=== PATIENT | female | born 1975 | race Caucasian/White ===

== ENCOUNTER 2016-09-01 13:50 | Outpatient (CLI) | payer MEDICAID ==
--- NOTE | 2016-09-02 16:53 | Mammography Report ---
DIGITAL SCREENING MAMMOGRAM: 09/01/2016 CLINICAL INDICATION: A 41-year-old with history of late childbearing, for baseline. TECHNIQUE: Routine CC and MLO projections were obtained of the breasts. Bilateral laterally exaggera gia craniocaudal views. FINDINGS: The breasts demonstrate heterogeneously dense fibroglandular parenchyma bilaterally. Coars e and punctate, typically benign calcifications are present. No suspicious masses, clustered microcal cifications, or regions of architectural distortion are identified. IMPRESSION: BENIGN FINDINGS. RECOMMENDATION: ROUTINE ANNUAL SCREENING UNLESS OTHERWISE CLINICALLY INDICATED. BIRADS CATEGORY 2-BENIGN FINDINGS. STANDARD QUALIFYING STATEMENTS 1. This examination was reviewed with the aid of Computer-Aided Detection (CAD). 2. A negative or benign imaging report should not delay biopsy if clinically suspicious findings are present. Consider surgical consultation if warranted. More than 5% of cancers are not identified by i maging. 3. Dense breasts may obscure an underlying neoplasm. 13:9:03 JOB #: [id number] EXT JOB #:[id number]
== END 2016-09-01 13:51 | disposition home or self-care (01) ==
LOC: DI.S 13:50
PROVIDERS: ATTEND Nurse Practitioner Family
DX: Z12.31 Encounter for screening mammogram for malignant neoplasm of breast (principal)
CPT/HCPCS: 77067

== ENCOUNTER 2016-09-05 09:38 | Outpatient (CLI) | payer MEDICAID ==
[2016-09-05 18:27] LABS: BILIRUBIN,URINE NEGATIVE (NEGATIVE)
[2016-09-05 18:42] LABS: UR CULTURE IF IND NOT INDICATED; WBC,URINE 0-3 /HPF (0-5)
[2016-09-05 18:49] LABS: ALBUMIN/GLOBULIN RATIO 1.6 (1.0-2.2); BILIRUBIN,TOTAL 0.8 mg/dL (0.2-1.0); BUN - BLOOD UREA NITROGEN 16 mg/dL (6-20); CALCIUM 9.3 mg/dL (8.5-10.3); CARBON DIOXIDE - CO2 29 mmol/L (21-32); CHLORIDE 103 mmol/L (101-111); CREATININE 0.7 mg/dL (0.4-1.0); GFR - MDRD 92 (>89); GLUCOSE 83 mg/dL (70-100); POTASSIUM 4.5 mmol/L (3.5-5.0); SODIUM 138 mmol/L (135-145); TOTAL PROTEIN 6.6 g/dL (6.7-8.2)
[2016-09-05 18:50] LABS: BASOPHILS # (AUTO) 0.1 10^3/uL (0.0-0.1); BASOPHILS % (AUTO) 1.9 %; EOSINOPHILS # (AUTO) 0.2 10^3/uL (0.0-0.7); EOSINOPHILS % (AUTO) 3.4 %; HCT - HEMATOCRIT 41.8 % (37.0-47.0); LYMPHOCYTES # (AUTO) 1.6 10^3/uL (1.5-3.5); LYMPHOCYTES % (AUTO) 31.3 %; MEAN CORPUSCULAR HEMOGLOBIN 32.5 pg (27.0-31.0); MEAN CORPUSCULAR HGB CONC 33.6 g/dL (32.0-36.0); MEAN CORPUSCULAR VOLUME 96.8 fL (81.0-99.0); MEAN PLATELET VOLUME 8.4 fL (7.9-10.8); MONOCYTES # (AUTO) 0.4 10^3/uL (0.0-1.0); MONOCYTES % (AUTO) 8.2 %; NEUTROPHILS # (AUTO) 2.9 10^3/uL (1.5-6.6); NEUTROPHILS % (AUTO) 55.2 %; NUCLEATED RED BLOOD CELLS AUTO 0.1 /100WBC; RED BLOOD COUNT 4.32 10^6/uL (4.20-5.40); RED CELL DISTRIBUTION WIDTH 12.5 % (12.0-15.0); UNCORRECTED WHITE BLOOD COUNT 5.3 x10^3/uL; WHITE BLOOD COUNT 5.3 x10^3/uL (4.8-10.8)
== END 2016-09-05 09:39 | disposition home or self-care (01) ==
LOC: LAB.S 09:38
PROVIDERS: ATTEND Nurse Practitioner Family
DX: R35.0 Frequency of micturition (principal)
CPT/HCPCS: 36415; 80050; 81001; 87086

== ENCOUNTER 2016-10-13 14:04 | Outpatient (CLI) | payer MEDICAID | END 2016-10-13 14:05 | disposition home or self-care (01) | LOC: LAB.R 14:04 | PROVIDERS: ATTEND Registered Nurse | DX: R30.0 Dysuria (principal); Z11.3 Encounter for screening for infections with a predominantly sexual mode of transmission | CPT/HCPCS: 87086; 87491; 87591 ==

== ENCOUNTER 2016-10-15 10:17 | Outpatient (CLI) | payer MEDICAID ==
--- NOTE | 2016-10-16 00:56 | Ultrasound Report ---
EXAM: PELVIC ULTRASOUND EXAM DATE: 10/15/2016 11:18 AM. CLINICAL HISTORY: Pelvic and perineal pain. COMPARISON: None. TECHNIQUE: Realtime transabdominal pelvic scan performed to identify the uterus and adnexa and as an overview of other pelvic structures, followed by transvaginal scan to provide greater detail of the u terus and adnexa, with static image documentation. FINDINGS: Uterus: 8.9 x 3.2 x 4.4 cm, volume 66 cc. Anteverted position. Normal overall size and echotexture. Masses: None. Endometrium: 5.[address] Cervix: Unremarkable. Right Ovary: 4.1 x 2.3 x 2.9 cm, volume 14 cc. Normal echotexture and blood flow. Left Ovary: 4.6 x 3.1 x 3.1 cm, volume 23 cc. Normal echotexture and blood flow. Free Fluid: None. Other: None. IMPRESSION: Normal pelvic ultrasound with IUD in place. [facility] Referring Provider Line: [phone] SITE ID: [id number]
== END 2016-10-15 10:18 | disposition home or self-care (01) ==
LOC: DI 10:17
PROVIDERS: ATTEND Registered Nurse
DX: R10.2 Pelvic and perineal pain (principal); Z97.5 Presence of (intrauterine) contraceptive device
CPT/HCPCS: 76830; 76856

== ENCOUNTER 2018-09-13 17:20 | Outpatient (CLI) | payer MEDICAID | END 2018-09-13 17:21 | disposition home or self-care (01) | LOC: RT 17:20 | PROVIDERS: ATTEND Naturopath | DX: R07.9 Chest pain, unspecified (principal); Z86.19 Personal history of other infectious and parasitic diseases; Z87.448 Personal history of other diseases of urinary system | CPT/HCPCS: 93005 ==

== ENCOUNTER 2018-09-14 09:10 | Outpatient (CLI) | payer MEDICAID | END 2018-09-14 09:11 | disposition home or self-care (01) | LOC: DI 09:10 | PROVIDERS: ATTEND Naturopath | DX: R07.9 Chest pain, unspecified (principal); Z86.19 Personal history of other infectious and parasitic diseases | CPT/HCPCS: 93306 ==

== ENCOUNTER 2018-10-01 08:00 | Outpatient (CLI) | payer MEDICAID ==
[2018-10-01 20:44] LABS: CANDIDA GROUP DNA NEGATIVE (NEGATIVE); CANDIDA KRUSEI DNA NEGATIVE (NEGATIVE); TRICHOMONAS VAGINALIS DNA NEGATIVE (NEGATIVE)
== END 2018-10-01 23:59 | disposition home or self-care (01) ==
LOC: LAB.R 08:00
PROVIDERS: ATTEND Nurse Practitioner Obstetrics & Gynecology
DX: N76.0 Acute vaginitis (principal); R31.9 Hematuria, unspecified
CPT/HCPCS: 87086; 87661; 87801

== ENCOUNTER 2019-01-05 01:07 | Emergency (ER) | payer MEDICAID ==
--- NOTE | 2019-01-05 01:38 | ED Physician Documentation ---
History of Present Illness - Stated complaint Stated Complaint: BODY BLISTER, FEVER/CHILLS/LOW ENERGY - Chief complaint Chief Complaint: Wound - History obtained from History obtained from: Patient - Additonal information Additional information: This is a 43-year-old woman who presents with complaints that she had flulike symptoms earlier this week just kind of fatigued and chilled 3 days ago.She ne geovanny really ran any fever and then today she felt better but she noticed some blisters on her upper right arm and armpit area this morning. She did not really think that much of it but now those blisters seem to be spreading onto her neck while she was at work and then onto her chest and back tonight and then 2 hours ago she had a fever of 101.1. She felt like her heart was racing a little bit and she felt just kind of lightheaded and had a mild headache. She is very concerned about the symptoms because she had sepsis this summer due to urinary tract infection and does not want to repeat that. She did take ibuprofen about 12 hours prior to presentation and she is been using a homeopathic remedy to combat the flulike symptoms. She denies any history of chickenpox. 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 She does have a 7-year-old son however he has been vaccinated against the chickenpox. She also reports a mild sore throat earache and stuffy nose. She is had some clear rhinorrhea but does not feel short of breath has had minimal cough. No vomiting. She complains of a "odd sensation and soreness" in her abdomen. She has some urinary frequency and urgency and has had vaginal and anal "irritation" for weeks. Review of Systems Constitutional: reports: Fever, Chills, Fatigue Eyes: denies: Loss of vision Ears: denies: Ear pain Nose: reports: Congestion Throat: reports: Sore throat Cardiac: reports: Palpitations. denies: Chest pain / pressure Respiratory: reports: Dyspnea, Cough GI: reports: Abdominal Pain. denies: Nausea, Vomiting, Diarrhea : reports: Dysuria, Frequency Skin: reports: Rash Musculoskeletal: denies: Neck pain, Back pain Neurologic: reports: Headache, Other (Lightheaded). denies: Near syncope, Syncope Endocrine: denies: Swollen lymph nodes Immunocompromised: denies: Immunocompromised PD PAST MEDICAL HISTORY - Present Medications Home Medications: Ambulatory Orders Medication Instructions Recorded Confirmed Acyclovir 800 mg PO QID #20 tablet 01/05/19 - Allergies Allergies/Adverse Reactions: Allergies Allergy/AdvReac Type Severity Reaction Status Date / Time codeine AdvReac Nausea Verified 01/05/19 01:20 PD ED PE NORMAL - Vitals Vital signs reviewed: Yes - General General: Alert and oriented X 3, No acute distress, Well developed/nourished - HEENT HEENT: Atraumatic, PERRL, EOMI, Ears normal, Moist mucous membranes, Pharynx benign - Neck Neck: Supple, no meningeal sign, No adenopathy - Cardiac Cardiac: RRR, No murmur, Strong equal pulses - Respiratory Respiratory: No respiratory distress, Clear bilaterally - Abdomen Abdomen: Normal bowel sounds, Non tender, Non distended, No organomegaly - Back Back: No CVA TTP - Derm Derm: Normal color, Warm and dry, Other (On her trunk neck and the proximal aspects of her upper extremities are noted to be several Blisters on erythematous base. 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, No motor deficit, No sensory deficit, Normal speech - Psych Psych: Normal mood, Normal affect Results - Vitals Vitals: Vital Signs - 24 hr 01/05/19 01/05/19 01:10 03:12 Temperature 37.9 C H 36.9 C Heart Rate 127 H 109 H Respiratory 18 16 Rate Blood Pressure 129/91 H 108/75 O2 Saturation 98 97 Oxygen O2 Source Room air - Labs Labs: Laboratory Tests 01/05/19 02:01 Urine Color YELLOW Urine Clarity CLEAR Urine pH 6.0 Ur Specific [place] 1.010 Urine Protein NEGATIVE Urine Glucose (UA) NEGATIVE Urine Ketones TRACE Urine Occult Blood TRACE-INTA Urine Nitrite NEGATIVE Urine Bilirubin NEGATIVE Urine Urobilinogen 0.2 (NORMAL) Ur Leukocyte Esterase NEGATIVE Ur Microscopic Review NOT INDICATED Urine Culture Comments NOT INDICATED PD MEDICAL DECISION MAKING - ED course Complexity details: reviewed results, d/w patient, d/w family ED course: Patient's urinalysis was negative. Clinically this is chickenpox. She is never had chickenpox in the past. She was very concerned about the possibility of sepsis but we talked about this at length and I do not see any indication that she is septic at this time or have any significant complication from the varicella infection. We did discuss given her age that she is at risk for more severe infection and we discussed the complications including myocarditis, pneumonia, meningitis and encephalitis associated with severe chickenpox infections. She was given specific things to watch for at home and she is going to quarantine herself at home. We discussed how contagious she is until all of these lesions are scabbed over. Theoretically her child is immune having been vaccinated. Given her age and the risk of more serious complications we elected to start acyclovir 800 mg 4 times a day for 5 days. Risk and benefit of this treatment were discussed with the patient and she elected to start the medication. She will follow-up if she develops any more concerning signs or symptoms suggestive of a more serious complication of the infection. Departure - Departure Disposition: 01 Home, Self Care Clinical Impression: Chicken pox Qualifiers: Varicella complications: without complication Qualified Code(s): B01.9 - Varicella without complication Condition: Good Instructions: ED Varicella Follow-Up: Preeti Delgado ND [Primary Care Provider] - Prescriptions: Acyclovir 800 mg PO QID #20 tablet Comments: Begin the acyclovir as soon as possible this morning. Make sure that you are drinking plenty of water. May use Tylenol or ibuprofen if needed for fever or body aches. Quarantine yourself at home as much as possible but certainly avoid contact with people who have suppressed immune system, the elderly, women or young infants. Recheck if your symptoms are worsening with fever that is not responding to Tylenol or ibuprofen, you are vomiting and cannot keep anything down, you develop significant chest pain, cough and/or shortness of breath, severe headache, dizziness and pass out or other problems arise. Discharge Date/Time: 01/05/19 03:17
[2019-01-05 02:04] LABS: BILIRUBIN,URINE NEGATIVE (NEGATIVE); GLUCOSE, URINE (UA) NEGATIVE (NEGATIVE); KETONES,URINE (UA) TRACE mg/dL (NEGATIVE); LEUKOCYTE ESTERASE, URINE NEGATIVE (NEGATIVE); NITRITE,URINE NEGATIVE (NEGATIVE); OCCULT BLOOD,URINE TRACE-INTA (NEGATIVE); PROTEIN,URINE NEGATIVE (NEGATIVE); UROBILINOGEN,URINE 0.2 (NORMAL) E.U./dL (NORMAL)
[2019-01-05 02:14] LABS: CLARITY,URINE CLEAR (CLEAR)
[2019-01-05 03:12] VITALS: BP 108/75
== END 2019-01-05 03:17 | disposition home or self-care (01) ==
LOC: ED 01:07
DX: B01.9 Varicella without complication (principal)
CPT/HCPCS: 81001; 81003; 87086; 99283; 99284

== ENCOUNTER 2019-01-16 10:31 | Outpatient (CLI) | payer MEDICAID | END 2019-01-16 10:32 | disposition EMS.NT | LOC: EMS 10:31 | PROVIDERS: ATTEND Surgery | DX: R42 Dizziness and giddiness (principal); R55 Syncope and collapse; R07.9 Chest pain, unspecified ==

== ENCOUNTER 2019-01-29 08:00 | Outpatient (CLI) | payer MEDICAID | END 2019-01-29 23:59 | disposition home or self-care (01) | LOC: LAB.R 08:00 | PROVIDERS: ATTEND Registered Nurse | DX: K62.9 Disease of anus and rectum, unspecified (principal) | CPT/HCPCS: 87177; 87209 ==

== ENCOUNTER 2019-03-12 08:00 | Outpatient (CLI) | payer MEDICAID ==
[2019-03-12 19:07] LABS: CANDIDA GROUP DNA NEGATIVE (NEGATIVE); CANDIDA KRUSEI DNA NEGATIVE (NEGATIVE); TRICHOMONAS VAGINALIS DNA NEGATIVE (NEGATIVE)
== END 2019-03-12 23:59 | disposition home or self-care (01) ==
LOC: LAB.R 08:00
PROVIDERS: ATTEND Nurse Practitioner Obstetrics & Gynecology
DX: N76.0 Acute vaginitis (principal)
CPT/HCPCS: 87661; 87801

== ENCOUNTER 2019-03-31 17:29 | Emergency (ER) | payer MEDICAID ==
[2019-03-31 17:49] VITALS: BP 125/80
[2019-03-31] MEDS ORDERED: BACITRACIN ZINC OINT 1 PACKET TOP STA (18:05)
--- NOTE | 2019-03-31 18:12 | ED Physician Documentation ---
History of Present Illness - Stated complaint Stated Complaint: RT HAND WOUND - Chief complaint Chief Complaint: Ext Problem - History obtained from History obtained from: Patient - History of Present Illness Timing: Yesterday Pain level max: 0 Pain level now: 0 - Additonal information Additional information: 43-year-old female presents to the emergency department with eczema on her hands. Saw the doctor 2 days ago for this and was placed on a steroid cream. She states she developed a small pustule to the palm of her hand and wanted it to be evaluated. No fevers. Nothing makes it better or worse. 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 Derm: Skin cancer surgery - Present Medications Home Medications: Ambulatory Orders Medication Instructions Recorded Confirmed Tamsulosin [Flomax] 0.4 mg PO DAILY 03/31/19 03/31/19 predniSONE [Deltasone] 10 mg PO [id number] #42 tab 03/31/19 - Allergies Allergies/Adverse Reactions: Allergies Allergy/AdvReac Type Severity Reaction Status Date / Time codeine AdvReac Nausea Verified 03/31/19 17:42 - Social History Does the pt smoke?: No Smoking Status: Never smoker Does the pt drink ETOH?: Yes ETOH Use: Beer Does the pt have substance abuse?: Yes Substance Use and Type: Marijuana - Immunizations Immunizations are current?: Yes - POLST Patient has POLST: No PD ED PE NORMAL - Vitals Vital signs reviewed: Yes - General General: Alert and oriented X 3, No acute distress, Well developed/nourished - HEENT HEENT: Moist mucous membranes - Neck Neck: Supple, no meningeal sign - Derm Derm: Warm and dry - Extremities Extremities: Other (Scaling erythematous rash to the bilateral hands. The right palm has a small pustule, 0.2 cm.) - Neuro Neuro: Alert and oriented X 3 - Psych Psych: Normal mood, Normal affect Results - Vitals Vitals: Vital Signs - 24 hr 03/31/19 17:43 Temperature 36.5 C Heart Rate 84 Respiratory 16 Rate Blood Pressure 125/80 O2 Saturation 99 Oxygen O2 Source Room air PD MEDICAL DECISION MAKING - ED course Complexity details: considered differential, d/w patient ED course: Pustule was unroofed and the purulence drained. Bacitracin applied. Will place on a steroid taper for the eczema. No evidence of significant cellulitis or deep space infection in the hand. Patient counseled regarding signs and symptoms for which I believe and urgent re-evaluation would be necessary. Patient with good understanding of and agreement to plan and is comfortable going home at this time This document was made in part using voice recognition software. While efforts are made to proofread this document, sound alike and grammatical errors may occur. Departure - Departure Disposition: 01 Home, Self Care Clinical Impression: Pustule Eczema Qualifiers: Eczema type: unspecified Qualified Code(s): L30.9 - Dermatitis, unspecified Condition: Good Instructions: ED Dermatitis Atopic Eczema Follow-Up: Silke Drew ARNP [Primary Care Provider] - As Needed Prescriptions: predniSONE [Deltasone] 10 mg PO [id number] #42 tab Comments: Continue to use lotion at home whenever possible to help keep your hands moist as this will help your eczema. Return if you worsen. Return especially for increasing redness, swelling or drainage from the wound.
== END 2019-03-31 18:16 | disposition home or self-care (01) ==
LOC: ED 17:29
DX: L08.9 Local infection of the skin and subcutaneous tissue, unspecified (principal); L30.9 Dermatitis, unspecified
CPT/HCPCS: 99282; 99284; A9270

== ENCOUNTER 2019-05-29 21:38 | Emergency (ER) | payer MEDICAID ==
--- NOTE | 2019-05-29 21:59 | ED Physician Documentation ---
PD [facility] HEENT - Stated complaint Stated Complaint: R EAR PAIN - Chief complaint Chief Complaint: Heent - History obtained from History obtained from: Patient - History of Present Illness Timing - onset: How many weeks ago (over 1 week of right ear pain and some mild drainage with qtips. Had telemed appt with PCP and Rx Ciprodex dtops, which patient has been using. Symptoms of pain decreased but not gone and then worsened again. No rash nor skin redness. Seen by Clinic in person yesterday, and was instructed to continue the Ciprodex, since [place] some redness of the canal. Having increased pain in ear, now with pain to side of face as well. Called the Clinic and instructed to come to ER.) Timing - duration: Weeks (over 1 week) Timing - details: Gradual onset, Waxing and waning Location: Right ear. No: Left ear, Sinuses, Throat Worsens: Swalllowing, Other (palpation to front of ear and submandibular area.) Associated symptoms: Swollen nodes, Other (no skin rash). No: Fever, Facial swelling Recently seen: Clinic Review of Systems Constitutional: denies: Fever, Chills Ears: reports: Loss of hearing, Ear pain. denies: Tinnitus/ringing, Foreign body Nose: denies: Rhinorrhea / runny nose, Congestion Throat: denies: Sore throat Cardiac: denies: Chest pain / pressure Respiratory: denies: Dyspnea, Cough GI: denies: Nausea, Vomiting Skin: denies: Rash, Lesions PD PAST MEDICAL HISTORY - Past Medical History Cardiovascular: None Respiratory: None Neuro: None Endocrine/Autoimmune: None GI: None HEALTH INFORMATION ADMINISTRATOR: None : None HEENT: None Psych: None Musculoskeletal: None Derm: None - Past Surgical History Past Surgical History: Yes /HEALTH INFORMATION ADMINISTRATOR: section Derm: Skin cancer surgery - Present Medications Home Medications: Ambulatory Orders Medication Instructions Recorded Confirmed Tamsulosin [Flomax] 0.4 mg PO DAILY 03/31/19 03/31/19 predniSONE [Deltasone] 10 mg PO [id number] #42 tab 03/31/19 Doxycycline Monohydrate 100 mg PO BID #14 tablet 05/29/19 Neomycin/Polymyx/Hc Otic Drops 3 drops OT QID 5 Days #1 bottle 05/29/19 [Cortisporin Ear Susp] - Allergies Allergies/Adverse Reactions: Allergies Allergy/AdvReac Type Severity Reaction Status Date / Time codeine AdvReac Nausea Verified 05/29/19 21:47 - Social History Does the pt smoke?: No Smoking Status: Never smoker Does the pt drink ETOH?: Yes Does the pt have substance abuse?: Yes - Immunizations Immunizations are current?: Yes - POLST Patient has POLST: No PD ED PE NORMAL - Vitals Vital signs reviewed: Yes - General General: Alert and oriented X 3, No acute distress, Well developed/nourished - HEENT HEENT: Moist mucous membranes, Pharynx benign. No: Ears normal (left ear is normal; right ear with canal redness and some swelling. TM with some redness and appearance of fluid behind it. There is preauricular tenderness with mild adenopathy. No rash nor skin lesions. No mastoid tenderness nor redness. ) - Neck Neck: Supple, no meningeal sign - Cardiac Cardiac: RRR, No murmur - Respiratory Respiratory: Clear bilaterally - Derm Derm: Normal color, Warm and dry, No rash - Neuro Neuro: Alert and oriented X 3, No motor deficit, Normal speech Results - Vitals Vitals: Vital Signs - 24 hr 05/29/19 05/29/19 21:40 22:33 Temperature 36.9 C Heart Rate 99 89 Respiratory 16 14 Rate Blood Pressure 127/81 H 128/78 O2 Saturation 98 99 Oxygen O2 Source Room air PD MEDICAL DECISION MAKING - ED course Complexity details: considered differential (seems OE, but not improved with topical Ciprodex and is having pain on side of face and has some adenopathy. So consider tissue sprea/cellulitis. ), d/w patient Departure - Departure Disposition: 01 Home, Self Care Clinical Impression: Failure of outpatient treatment, Cellulitis of right ear canal Otitis externa Qualifiers: Otitis externa type: other infective Chronicity: acute Laterality: right Qualified Code(s): H60.391 - Other infective otitis externa, right ear Condition: Stable Record reviewed to determine appropriate education?: Yes Instructions: ED Otitis Externa Follow-Up: Silke Drew ARNP [Primary Care Provider] - Prescriptions: Doxycycline Monohydrate 100 mg PO BID #14 tablet Neomycin/Polymyx/Hc Otic Drops [Cortisporin Ear Susp] 3 drops OT QID 5 Days #1 bottle Comments: Change from the Cipro Dex eardrops to Cortisporin eardrops and see if that is more effective. Combined with that doxycycline oral antibiotic twice daily for 5 to 7 days as there is persistent infection in the canal despite the topical treatment you have been using. It may be that the bacteria had some partial resistance to the Cipro or could be at a deeper layer where the it needs oral antibiotics. We will try both. Continue some anti-inflammatory such as ibuprofen or naproxen 2-3 times a day. Add Tylenol if needed for pain. Recheck if still not improving over the next few days and resolved by 5 to 7 days. Discharge Date/Time: 05/29/19 22:34
[2019-05-29] MEDS: NEOMYCIN/POLYMYX/HC OTIC DROPS RIGHTEAR STA (22:33)
[2019-05-29] MEDS: DOXYCYCLINE 100 MG TABLET PO STA (22:33)
[2019-05-29] MEDS: NAPROXEN 250 MG TABLET PO STA (22:33)
[2019-05-29 22:35] VITALS: BP 128/78
== END 2019-05-29 22:34 | disposition home or self-care (01) ==
LOC: ED 21:38
DX: H60.391 Other infective otitis externa, right ear (principal); L03.818 Cellulitis of other sites
CPT/HCPCS: 99282; 99284; A9270

== ENCOUNTER 2019-08-01 08:00 | Outpatient (CLI) | payer MEDICAID | END 2019-08-01 23:59 | disposition home or self-care (01) | LOC: LAB.R 08:00 | PROVIDERS: ATTEND Family Medicine | DX: R30.0 Dysuria (principal) | CPT/HCPCS: 87086 ==

== ENCOUNTER 2019-10-17 10:01 | Outpatient (CLI) | payer MEDICAID ==
--- NOTE | 2019-10-18 09:17 | Mammography Report ---
BILATERAL DIGITAL SCREENING MAMMOGRAM 3D/2D: 10/17/2019 CLINICAL: Routine screening. Comparison is made to exam dated: 09/01/2016 mammogram - [facility]. The tissue of both breasts is heterogeneously dense. This may lower the sensitivity of mammography. There are benign calcifications in both breasts. No significant masses, calcifications, or other findings are seen in either breast. There has been no significant interval change. IMPRESSION: BENIGN There is no mammographic evidence of malignancy. A 1 year screening mammogram is recommended. This exam was interpreted at Station ID: [id number]. NOTE: For mammograms, a report in lay terms will be sent to the patient. Approximately 15% of breast malignancies will not be visualized mammographically. In the management of a palpable breast mass, a negative mammogram must not discourage biopsy of a clinically suspicious lesion. Electronically Signed By: Gerry Mancuso M.D. ar/penrad:10/17/2019 12:45:20 ACR BI-RADS Category 2: Benign Finding(s) 3342F PARENCHYMAL PATTERN: (D) - The breast(s) demonstrate(s) heterogeneously dense fibroglandular terry dial. BI-RADS CATEGORY: (2) - 2 RECOMMENDATION: (ANNUAL) - Recommend routine annual screening mammography. [id number] 1 year screening LATERALITY: (B)
== END 2019-10-17 10:02 | disposition home or self-care (01) ==
LOC: DI 10:01
PROVIDERS: ATTEND Registered Nurse
DX: Z12.31 Encounter for screening mammogram for malignant neoplasm of breast (principal)
CPT/HCPCS: 77063; 77067

== ENCOUNTER 2020-01-16 15:38 | Outpatient (CLI) | payer MEDICAID | END 2020-01-16 15:39 | disposition home or self-care (01) | LOC: COV 15:38 | PROVIDERS: ATTEND Family Medicine | DX: R07.0 Pain in throat (principal); R09.81 Nasal congestion; R09.89 Other specified symptoms and signs involving the circulatory and respiratory systems; Z20.828 Contact with and (suspected) exposure to other viral communicable diseases ==

== ENCOUNTER 2020-09-15 08:00 | Outpatient (CLI) | payer MEDICAID | END 2020-09-15 23:59 | disposition home or self-care (01) | LOC: LAB.S 08:00 | PROVIDERS: ATTEND Physician Assistant Medical | DX: R07.0 Pain in throat (principal); Z20.822 Contact with and (suspected) exposure to COVID-19 ==

== ENCOUNTER 2020-11-12 09:08 | Outpatient (CLI) | payer MEDICAID ==
[2020-11-12 14:51] LABS: BASOPHILS # (AUTO) 0.1 10^3/uL (0.0-0.1); BASOPHILS % (AUTO) 1.4 %; EOSINOPHILS # (AUTO) 0.1 10^3/uL (0.0-0.7); EOSINOPHILS % (AUTO) 2.3 %; HCT - HEMATOCRIT 41.3 % (37.0-47.0); HGB - HEMOGLOBIN 13.7 g/dL (12.0-16.0); LYMPHOCYTES # (AUTO) 1.8 10^3/uL (1.5-3.5); LYMPHOCYTES % (AUTO) 31.8 %; MEAN CORPUSCULAR HEMOGLOBIN 33.8 pg (27.0-31.0); MEAN CORPUSCULAR HGB CONC 33.2 g/dL (32.0-36.0); MEAN PLATELET VOLUME 10.2 fL (7.9-10.8); MONOCYTES # (AUTO) 0.5 10^3/uL (0.0-1.0); MONOCYTES % (AUTO) 9.3 %; NEUTROPHILS % (AUTO) 54.7 %; PLT - PLATELET COUNT 221 10^3/uL (130-450); RED BLOOD COUNT 4.05 10^6/uL (4.20-5.40); RED CELL DISTRIBUTION WIDTH 12.3 % (12.0-15.0); WHITE BLOOD COUNT 5.6 x10^3/uL (4.8-10.8)
[2020-11-12 15:19] LABS: ALBUMIN/GLOBULIN RATIO 1.4 (1.0-2.2); ALKALINE PHOSPHATASE 44 IU/L (42-121); ALT ALANINE AMINOTRANSFERASE 15 IU/L (10-60); AST ASPARTATE AMINOTRANSFERASE 18 IU/L (10-42); BILIRUBIN,TOTAL 0.8 mg/dL (0.2-1.0); BUN - BLOOD UREA NITROGEN 12 mg/dL (6-20); CALCIUM 8.9 mg/dL (8.5-10.3); CARBON DIOXIDE - CO2 30 mmol/L (21-32); CHLORIDE 100 mmol/L (101-111); CHOL/HDL RATIO 2.4 (<4.4); CHOLESTEROL 210 mg/dL; CREATININE 0.8 mg/dL (0.4-1.0); GFR - MDRD 78 (>89); GLUCOSE 88 mg/dL (70-100); HDL CHOLESTEROL 87 mg/dL; LDL CHOLESTEROL,CALCULATED 114 mg/dL; LDL/HDL RATIO 1.3 (<4.4); POTASSIUM 3.8 mmol/L (3.5-5.0); SODIUM 138 mmol/L (135-145); TOTAL PROTEIN 6.9 g/dL (6.7-8.2); TRIGLYCERIDES 47 mg/dL; VLDL CHOLESTEROL 9 mg/dL
[2020-11-12 15:27] LABS: CRP - C-REACTIVE PROTEIN < 1.0 mg/dL (0-1.0)
[2020-11-12 15:29] LABS: THYROID STIMULATING HORMONE 2.1 uIU/mL (0.34-5.60)
== END 2020-11-12 09:09 | disposition home or self-care (01) ==
LOC: LAB.S 09:08
PROVIDERS: ATTEND Registered Nurse
DX: Z13.228 Encounter for screening for other metabolic disorders (principal); Z13.220 Encounter for screening for lipoid disorders; Z13.29 Encounter for screening for other suspected endocrine disorder; Z13.0 Encounter for screening for diseases of the blood and blood-forming organs and certain disorders involving the immune mechanism; B34.9 Viral infection, unspecified; R33.9 Retention of urine, unspecified; L30.9 Dermatitis, unspecified
CPT/HCPCS: 36415; 80050; 80061; 83721; 85651; 86140

== ENCOUNTER 2021-04-11 12:20 | Outpatient (CLI) | payer MEDICAID ==
--- NOTE | 2021-04-11 12:47 | XRAY Report ---
PROCEDURE: Foot 3 View RT INDICATIONS: RIGHT FOOT PAIN TECHNIQUE: 3 views of the foot were acquired. COMPARISON: None FINDINGS: Bones: No acute fractures or dislocations. No suspicious bony lesions. Small plantar calcaneal ent hesophyte. Soft tissues: No tibiotalar joint effusion. Achilles tendon appears normal. IMPRESSION: Right foot without acute fracture or dislocation. If there is persistent clinical concern for radiogr aphically occult fracture, consider immobilization and repeat imaging in 10-14 days. Small plantar calcaneal enthesopathy. Reviewed by: Yvan Jimenez MD on 04/11/2021 11:45 AM [facility] Approved by: Yvan Jimenez MD on 04/11/2021 11:45 AM [facility] Station ID: [id number]
== END 2021-04-11 23:59 | disposition home or self-care (01) ==
LOC: DI.S 12:20
PROVIDERS: ATTEND Registered Nurse
DX: M77.31 Calcaneal spur, right foot (principal); M79.671 Pain in right foot

== ENCOUNTER 2021-07-30 10:30 | Outpatient (CLI) | payer MEDICAID | END 2021-07-30 10:31 | disposition EMS.NT | LOC: EMS 10:30 | DX: U07.1 COVID-19 (principal) ==

== ENCOUNTER 2021-08-04 08:00 | Outpatient (CLI) | payer MEDICAID ==
[2021-08-04 22:35] LABS: BACTERIAL VAGINOSIS DNA NEGATIVE (NEGATIVE); CANDIDA GLABRATA DNA NEGATIVE (NEGATIVE); CANDIDA GROUP DNA NEGATIVE (NEGATIVE); CANDIDA KRUSEI DNA NEGATIVE (NEGATIVE); TRICHOMONAS VAGINALIS DNA NEGATIVE (NEGATIVE)
== END 2021-08-04 23:59 | disposition home or self-care (01) ==
LOC: LAB.S 08:00
PROVIDERS: ATTEND Registered Nurse
DX: R30.0 Dysuria (principal); R50.9 Fever, unspecified
CPT/HCPCS: 36415; 80053; 81514; 85025; 85651; 86140; 87086

== ENCOUNTER 2021-08-04 17:53 | Outpatient (CLI) | payer MEDICAID ==
[2021-08-04 18:12] LABS: BASOPHILS % (AUTO) 0.2 %; EOSINOPHILS % (AUTO) 0.2 %; HCT - HEMATOCRIT 44.4 % (37.0-47.0); HGB - HEMOGLOBIN 14.7 g/dL (12.0-16.0); LYMPHOCYTES % (AUTO) 20.2 %; MEAN CORPUSCULAR HEMOGLOBIN 32.9 pg (27.0-31.0); MEAN CORPUSCULAR HGB CONC 33.1 g/dL (32.0-36.0); MEAN CORPUSCULAR VOLUME 99.3 fL (81.0-99.0); MEAN PLATELET VOLUME 9.9 fL (7.9-10.8); MONOCYTES % (AUTO) 7.8 %; NEUTROPHILS % (AUTO) 71.4 %; PLT - PLATELET COUNT 144 10^3/uL (130-450); RED BLOOD COUNT 4.47 10^6/uL (4.20-5.40); RED CELL DISTRIBUTION WIDTH 11.6 % (12.0-15.0)
[2021-08-04 18:20] LABS: ABNORMAL LYMPHS % (MANUAL) 0 %
[2021-08-04 18:29] LABS: ALBUMIN 4.1 g/dL (3.2-5.5); ALBUMIN/GLOBULIN RATIO 1.2 (1.0-2.2); ALKALINE PHOSPHATASE 53 IU/L (42-121); ALT ALANINE AMINOTRANSFERASE 24 IU/L (10-60); AST ASPARTATE AMINOTRANSFERASE 30 IU/L (10-42); BILIRUBIN,TOTAL 0.5 mg/dL (0.2-1.0); BUN - BLOOD UREA NITROGEN 8 mg/dL (6-20); CALCIUM 9.3 mg/dL (8.5-10.3); CARBON DIOXIDE - CO2 30 mmol/L (21-32); CHLORIDE 100 mmol/L (101-111); CREATININE 0.7 mg/dL (0.4-1.0); GFR - MDRD 90 (>89); GLUCOSE 112 mg/dL (70-100); POTASSIUM 3.8 mmol/L (3.5-5.0); SODIUM 138 mmol/L (135-145); TOTAL PROTEIN 7.6 g/dL (6.7-8.2)
[2021-08-04 18:51] LABS: BAND NEUTROPHILS % (MANUAL) 2 %; LYMPHOCYTES # (MANUAL) 1.1 10^3/uL (1.5-3.5); LYMPHOCYTES % (MANUAL) 11 %; MONOCYTES # (MANUAL) 0.2 10^3/uL (0.0-1.0); NEUTROPHILS # (MANUAL) 3.7 10^3/uL (1.5-6.6); REACTIVE LYMPHS % (MANUAL) 11 %
[2021-08-04 18:52] LABS: DIFFERENTIAL COMMENT MANUAL DIFFERENTIAL; PLATELET ESTIMATE, MANUAL NORMAL (130-450,000) (NORMAL); PLATELET MORPHOLOGY NORMAL APPEARANCE (NORMAL); RBC MORPHOLOGY (MULTIPLE) NORMAL APPEARANCE (NORMAL); WBC MORPHOLOGY (MULTIPLE) NORMAL APPEARANCE (NORMAL)
[2021-08-04 19:57] LABS: CRP - C-REACTIVE PROTEIN < 1.0 mg/dL (0-1.0)
== END 2021-08-04 17:54 | disposition home or self-care (01) ==
LOC: LAB 17:53
PROVIDERS: ATTEND Registered Nurse
DX: R30.0 Dysuria (principal); R50.9 Fever, unspecified
CPT/HCPCS: 36415; 80053; 85025; 85651; 86140

== ENCOUNTER 2021-08-15 08:00 | Outpatient (CLI) | payer MEDICAID ==
--- NOTE | 2021-08-15 17:27 | XRAY Report ---
PROCEDURE: Chest 2 View X-Ray INDICATIONS: ACUTE CHEST PAIN TECHNIQUE: 2 view(s) of the chest. COMPARISON: None. FINDINGS: Surgical changes and devices: None. Lungs and pleura: No pleural effusions or pneumothorax. Lungs are clear. Mediastinum: Mediastinal contours are normal. Heart size is normal. Bones and chest wall: No suspicious bony abnormalities. Soft tissues appear unremarkable. IMPRESSION: Normal chest Reviewed by: Aditya Apodaca on 08/15/2021 4:25 PM [email or web address] Approved by: Aditya Apodaca on 08/15/2021 4:25 PM [facility] Station ID: [id number]
== END 2021-08-15 23:59 | disposition home or self-care (01) ==
LOC: DI.S 08:00
PROVIDERS: ATTEND Physician Assistant
DX: R07.9 Chest pain, unspecified (principal)

== ENCOUNTER 2022-02-16 09:58 | Outpatient (CLI) | payer MEDICAID | END 2022-02-16 09:59 | disposition home or self-care (01) | LOC: LAB.S 09:58 | PROVIDERS: ATTEND Nurse Practitioner | DX: R07.89 Other chest pain (principal) | CPT/HCPCS: 36415; 85651; 86140 ==

== ENCOUNTER 2022-03-02 10:02 | Outpatient (CLI) | payer MEDICAID ==
--- NOTE | 2022-03-03 12:37 | Ultrasound Report ---
LIMITED ULTRASOUND OF LEFT BREAST: 03/02/2022 CLINICAL: Focal left breast pain. Comparison is made to exams dated: 03/02/2022 mammogram, 10/17/2019 mammogram, and 09/01/2016 mammogram - [facility]. Ultrasound of the left breast 12-1 o'clock region was performed on the area of interest. Gamez scale images of the real-time examination were reviewed. IMPRESSION: NEGATIVE There is no sonographic evidence of malignancy. There is no mammographic or sonographic abnormality seen in the left breast to correspond with the pa in, however, clinical followup is recommended. A 1 year screening mammogram is recommended. This exam was interpreted at Station ID: [id number]. Electronically Signed By: Marilin Pinedo M.D. lk/:03/02/2022 12:07:57 Ultrasound BI-RADS: 1 Negative BI-RADS CATEGORY: (1) - 1 RECOMMENDATION: (ANNUAL) - Recommend routine annual screening mammography. [id number] 1 year screening LATERALITY: (B)
--- NOTE | 2022-03-03 12:37 | Mammography Report ---
BILATERAL DIGITAL DIAGNOSTIC MAMMOGRAM 3D/2D: 03/02/2022 CLINICAL: Focal left breast pain. Due for bilateral imaging. Comparison is made to exams dated: 10/17/2019 mammogram and 09/01/2016 mammogram - [facility]. Both breasts are heterogeneously dense, which may obscure small masses (category c / 51-75% glandular tissue). No significant masses, calcifications, or other findings are seen in either breast. IMPRESSION: INCOMPLETE: NEEDS ADDITIONAL IMAGING EVALUATION There is no mammographic abnormality seen in the left breast to correspond with the palpable abnormal ity, however, targeted ultrasound of the left breast is recommended and will be performed immediatel y following this exam. Based on Tyrer-Cuzick model (a risk assessment model), the patient's lifetime risk is 22.5% and her 1 0 year risk is 4.7%. If a patient has an elevated risk, a more comprehensive evaluation should be con sidered and/or a referral to a genetic counselor. The [place] [employer], [place] [employer], and NCCN Guidelines advise the consideration of Breast MRI as an adjunct to screening mammog raffi in patients whose "Lifetime risk to develop breast cancer" is 20% or higher. This exam was interpreted at Station ID: [id number]. NOTE: For mammograms, a report in lay terms will be sent to the patient. Approximately 15% of breast malignancies will not be visualized mammographically. In the management of a palpable breast mass, a negative mammogram must not discourage biopsy of a clinically suspicious lesion. Electronically Signed By: Marilin Pinedo M.D. lk/:03/02/2022 10:45:25 ACR BI-RADS Category 0: Incomplete 3340F PARENCHYMAL PATTERN: (D) - The breast(s) demonstrate(s) heterogeneously dense fibroglandular parenchy ma. BI-RADS CATEGORY: (0) - 0 Ultrasound recall n/a LATERALITY: (B)
== END 2022-03-02 10:03 | disposition home or self-care (01) ==
LOC: DI 10:02
PROVIDERS: ATTEND Nurse Practitioner
DX: N64.4 Mastodynia (principal); R07.89 Other chest pain; R92.8 Other abnormal and inconclusive findings on diagnostic imaging of breast

== ENCOUNTER 2022-06-08 09:48 | Outpatient (CLI) | payer MEDICAID ==
--- NOTE | 2022-06-08 10:26 | XRAY Report ---
PROCEDURE: Lumbar Spine 2 View INDICATIONS: LOW BACK PAIN TECHNIQUE: 3 views of the lumbar spine were acquired. COMPARISON: None. FINDINGS: Bones: 5 [id number] vertebrae are present. Slight rightward curvature. Moderate disc height los s at L2-3, L1-2. Mild disc height loss at remaining levels. Soft tissues: Overlying bowel gas pattern is normal. No suspicious soft tissue calcifications. IUD projects of the pelvic inlet. IMPRESSION: Mild to moderate, multilevel degenerative disc disease. Reviewed by: Surinder Goins on 06/08/2022 10:24 AM PDT Approved by: Surinder Goins on 06/08/2022 10:24 AM PDT Station ID: [id number]
== END 2022-06-08 09:49 | disposition home or self-care (01) ==
LOC: DI.S 09:48
PROVIDERS: ATTEND Nurse Practitioner
DX: M51.36 Other intervertebral disc degeneration, lumbar region (principal); M51.37 Other intervertebral disc degeneration, lumbosacral region

== ENCOUNTER 2022-06-08 13:27 | Outpatient (CLI) | payer MEDICAID | END 2022-06-08 13:28 | disposition home or self-care (01) | LOC: MAC.INF 13:27 | PROVIDERS: ATTEND Nurse Practitioner | DX: R00.2 Palpitations (principal) | CPT/HCPCS: 93246 ==

== ENCOUNTER 2022-07-01 11:27 | Outpatient (CLI) | payer MEDICAID | END 2022-07-01 23:59 | disposition home or self-care (01) | LOC: MAC.INF 11:27 | PROVIDERS: ATTEND Nurse Practitioner | DX: I49.8 Other specified cardiac arrhythmias (principal); I47.1 Supraventricular tachycardia; I49.1 Atrial premature depolarization; I49.3 Ventricular premature depolarization | CPT/HCPCS: 93248 ==

== ENCOUNTER 2022-07-23 08:00 | Outpatient (CLI) | payer MEDICAID | END 2022-07-23 23:59 | disposition home or self-care (01) | LOC: LAB 08:00 | PROVIDERS: ATTEND Physician Assistant Medical | DX: N39.0 Urinary tract infection, site not specified (principal) | CPT/HCPCS: 87086; 87181 ==

== ENCOUNTER 2022-08-08 08:00 | Outpatient (CLI) | payer MEDICAID ==
[2022-08-08 16:46] LABS: BILIRUBIN,URINE NEGATIVE (NEGATIVE); GLUCOSE, URINE (UA) NEGATIVE (NEGATIVE); KETONES,URINE (UA) NEGATIVE (NEGATIVE); LEUKOCYTE ESTERASE, URINE TRACE (NEGATIVE); NITRITE,URINE NEGATIVE (NEGATIVE); OCCULT BLOOD,URINE SMALL (NEGATIVE); PROTEIN,URINE NEGATIVE (NEGATIVE); UROBILINOGEN,URINE 0.2 (NORMAL) E.U./dL (NORMAL)
[2022-08-08 17:01] LABS: BACTERIA,URINE Few /HPF (None Seen); CLARITY,URINE CLEAR (CLEAR); RBC,URINE 0-5 /HPF (0-5); SQUAMOUS EPITHELIAL CELL,UR MANY Squamous (<= Few)
== END 2022-08-08 23:59 | disposition home or self-care (01) ==
LOC: LAB.WC 08:00
PROVIDERS: ATTEND Nurse Practitioner
DX: R39.15 Urgency of urination (principal); R30.0 Dysuria
CPT/HCPCS: 81001; 87086

== ENCOUNTER 2022-08-09 14:56 | Outpatient (CLI) | payer MEDICAID ==
[2022-08-09 23:55] LABS: BACTERIAL VAGINOSIS DNA NEGATIVE (NEGATIVE); CANDIDA GLABRATA DNA NEGATIVE (NEGATIVE); CANDIDA GROUP DNA NEGATIVE (NEGATIVE); CANDIDA KRUSEI DNA NEGATIVE (NEGATIVE); TRICHOMONAS VAGINALIS DNA NEGATIVE (NEGATIVE)
== END 2022-08-09 14:57 | disposition home or self-care (01) ==
LOC: LAB.S 14:56
PROVIDERS: ATTEND Nurse Practitioner
DX: N30.90 Cystitis, unspecified without hematuria (principal); R10.2 Pelvic and perineal pain
CPT/HCPCS: 81514

== ENCOUNTER 2022-08-26 08:00 | Outpatient (CLI) | payer MEDICAID | END 2022-08-26 23:59 | disposition home or self-care (01) | LOC: LAB.S 08:00 | PROVIDERS: ATTEND Physician Assistant Medical | DX: N30.90 Cystitis, unspecified without hematuria (principal) | CPT/HCPCS: 87077; 87086; 87181 ==

== ENCOUNTER 2022-09-16 14:32 | Outpatient (CLI) | payer MEDICAID ==
--- NOTE | 2022-09-16 16:51 | Ultrasound Report ---
PROCEDURE: Pelvic w/Transvaginal INDICATIONS: PELVIC PAIN, CYSTITS TECHNIQUE: Real-time scanning was performed of the pelvic organs, with image documentation. Additional endovagi nal scanning was necessary due to incomplete visualization of the adnexal and endometrial structures by transabdominal scanning. COMPARISON: 10-30 FINDINGS: Uterus: Uterus is anteverted and normal in size at 10.0 x 4.1 x 5.3 cm. The myometrium is homogeneo us. The endometrium measures 10.4 mm in combined thickness. Uterine device is present. Ovaries: The right ovary measures 2.4 x 1.8 x 2.0 cm, with a calculated ovarian volume of 6.2 cc. T he left ovary measures 3.6 x 2.5 x 2.2 cm, with a calculated ovarian volume of 10.1 cc. The ovaries have a normal sonographic appearance. Less than 12 follicles can be seen in each ovary. No adnexal masses are seen. No cystic lesions measuring greater than 3 cm. Involuting left ovarian cyst measurin g 13 mm. Other: No pathologic free abdominal or pelvic fluid. IMPRESSION: 1. Intrauterine device is appropriately positioned. 2. Small left ovarian cyst. Reviewed by: Viviane Osorio MD on 09/16/2022 4:49 PM PDT Approved by: Viviane Osorio MD on 09/16/2022 4:49 PM PDT Station ID: [id number]
[2022-09-16] MEDS ORDERED: iohexoL-300 100 ML VIAL IVP ONE (20:57)
--- NOTE | 2022-09-17 14:55 | CT Report ---
PROCEDURE: IVP INDICATIONS: PELVIC PAIN, CYSTITS CONTRAST: 140ml omni 300 TECHNIQUE: After the administration of intravenous contrast, 5 mm thick sections acquired from the diaphragms to the symphysis. 5 mm thick coronal and sagittal reformats were acquired. For radiation dose reducti on, the following was used: automated exposure control, adjustment of mA and/or kV according to bess ent size. COMPARISON: Pelvic ultrasound 09/16/2022 FINDINGS: Image quality: Excellent. Urinary system: Both kidneys are normal in size. No hydronephrosis or nephrolithiasis on pre-contras t images. No solid masses or complex cysts which require follow up. Subcentimeter hypodensities with in the kidneys, too small to adequately characterize and could represent simple cysts. The opacified renal calyces and ureters appear normal, without filling defect. Nonopacification of the distal righ t ureter and the proximal left ureter limits evaluation of these regions. Bladder wall is mildly thic kened. No calcified bladder stones. No filling defect within the opacified bladder. OTHER Lung bases and heart: Unremarkable. Liver: Hepatic hypodensities, favored to represent simple cysts. Gallbladder and biliary tree: The gallbladder is contracted which limits evaluation. The common bile duct is dilated up to 8 mm. There is intrahepatic biliary ductal dilatation. The distal common bile d uct appears to taper normally. Spleen: No splenomegaly. Pancreas: No pancreatic ductal dilation. The pancreatic parenchyma is not well evaluated in this is o f contrast. Adrenals: No adrenal nodule. Bowel and peritoneum: No bowel distension. No pathologic free fluid. Abdominal Lymph nodes: No central or retroperitoneal adenopathy. Vessels: Minimal atherosclerotic vascular calcifications. Reproductive organs: Intrauterine device in place. Pelvic Lymph nodes: Unremarkable. Bones: No aggressive osseous abnormality. Degenerative changes of the spine, worse at L2-L3. Other: None. IMPRESSION: 1.The kidneys are normal in size without hydronephrosis or nephrolithiasis. Mild urinary bladder wall thickening which can be seen with cystitis, recommend correlation with urinalysis. No filling defect s within the opacified portions of the urinary tract. 2.Mild dilatation of the common bile duct with intrahepatic biliary ductal dilatation. The distal com mon bile duct appears to taper normally. The gallbladder is contracted without calcified stone. Recom mend correlation with cholestatic labs and clinical symptoms. Reviewed by: Reynaldo Salcido MD on 09/17/2022 2:54 PM PDT Approved by: Reynaldo Salcido MD on 09/17/2022 2:54 PM PDT Station ID: [id number]
== END 2022-09-16 14:33 | disposition home or self-care (01) ==
LOC: DI 14:32
PROVIDERS: ATTEND Nurse Practitioner
DX: Z97.5 Presence of (intrauterine) contraceptive device (principal); R10.2 Pelvic and perineal pain; N30.90 Cystitis, unspecified without hematuria; K83.8 Other specified diseases of biliary tract
CPT/HCPCS: 74178; 76830; 76856; Q9967

== ENCOUNTER 2023-03-08 08:00 | Outpatient (CLI) | payer MEDICAID ==
--- NOTE | 2023-03-09 10:55 | XRAY Report ---
PROCEDURE: Chest 2V INDICATIONS: ACUTE COUGH TECHNIQUE: 2 views of the chest were acquired. COMPARISON: None. FINDINGS: Surgical changes and devices: None. Lungs and pleura: No pleural effusions or pneumothorax. Lungs are clear. Mediastinum: Mediastinal contours appear normal. Heart size is normal. Bones and chest wall: No suspicious bony lesions. Overlying soft tissues appear unremarkable. IMPRESSION: No acute cardiopulmonary process. Reviewed by: Katia Ingram MD on 03/09/2023 10:54 AM [facility] Approved by: Katia Ingram MD on 03/09/2023 10:54 AM [facility] Station ID: [id number]
== END 2023-03-08 23:59 | disposition home or self-care (01) ==
LOC: DI.S 08:00
PROVIDERS: ATTEND Registered Nurse
DX: R42 Dizziness and giddiness (principal); R05.1 Acute cough; Z78.9 Other specified health status; N94.6 Dysmenorrhea, unspecified; R53.83 Other fatigue; R10.9 Unspecified abdominal pain

== ENCOUNTER 2023-03-09 08:46 | Outpatient (CLI) | payer MEDICAID ==
[2023-03-09 14:46] LABS: BASOPHILS # (AUTO) 0.1 10^3/uL (0.0-0.1); BASOPHILS % (AUTO) 1.6 %; EOSINOPHILS # (AUTO) 0.3 10^3/uL (0.0-0.7); EOSINOPHILS % (AUTO) 4.5 %; HCT - HEMATOCRIT 38.7 % (37.0-47.0); HGB - HEMOGLOBIN 12.7 g/dL (12.0-16.0); LYMPHOCYTES # (AUTO) 1.4 10^3/uL (1.5-3.5); LYMPHOCYTES % (AUTO) 25.5 %; MEAN CORPUSCULAR HEMOGLOBIN 33.2 pg (27.0-31.0); MEAN CORPUSCULAR HGB CONC 32.8 g/dL (32.0-36.0); MEAN CORPUSCULAR VOLUME 101.3 fL (81.0-99.0); MEAN PLATELET VOLUME 11.2 fL (7.9-10.8); MONOCYTES # (AUTO) 0.5 10^3/uL (0.0-1.0); MONOCYTES % (AUTO) 9.3 %; NEUTROPHILS # (AUTO) 3.3 10^3/uL (1.5-6.6); NEUTROPHILS % (AUTO) 58.7 %; PLT - PLATELET COUNT 195 10^3/uL (130-450); RED BLOOD COUNT 3.82 10^6/uL (4.20-5.40); WHITE BLOOD COUNT 5.6 x10^3/uL (4.8-10.8)
[2023-03-09 15:48] LABS: FERRITIN 14.6 ng/mL (11.0-306.8)
[2023-03-09 15:49] LABS: ALBUMIN 3.9 g/dL (3.2-5.5); ALBUMIN/GLOBULIN RATIO 1.6 (1.0-2.2); BILIRUBIN,TOTAL 0.6 mg/dL (0.2-1.0); CALCIUM 8.9 mg/dL (8.5-10.3); CREATININE 0.7 mg/dL (0.6-1.3); POTASSIUM 3.7 mmol/L (3.5-4.5); TOTAL PROTEIN 6.4 g/dL (6.4-8.9)
[2023-03-10 07:10] LABS: PROGESTERONE 1.6 ng/mL (.)
[2023-03-10 14:09] LABS: ESTRADIOL 65.5 pg/mL (.)
== END 2023-03-09 08:47 | disposition home or self-care (01) ==
LOC: LAB.S 08:46
PROVIDERS: ATTEND Registered Nurse
DX: R42 Dizziness and giddiness (principal); R05.1 Acute cough; R68.89 Other general symptoms and signs; N94.6 Dysmenorrhea, unspecified; R53.83 Other fatigue; R10.9 Unspecified abdominal pain; N30.90 Cystitis, unspecified without hematuria
CPT/HCPCS: 36415; 80053; 82670; 82728; 83001; 83002; 83690; 84144; 85025

== ENCOUNTER 2023-03-20 16:06 | Outpatient (CLI) | payer MEDICAID ==
--- NOTE | 2023-03-21 08:50 | Ultrasound Report ---
PROCEDURE: Duplex Ext Veins Bilateral INDICATIONS: STEFANIE Cook TECHNIQUE: Real-time imaging, as well as color and pulse Doppler interrogation, were performed of the deep veins of both legs from the inguinal ligament to the popliteal fossa. Attempted visualization of the calf veins was performed. COMPARISON: None FINDINGS: The deep veins are normally compressible, and free of intraluminal thrombus. Color and pu lse Doppler demonstrate normal phasic intravascular flow. There is normal augmentation response to d istal compression maneuver. IMPRESSION: No deep venous thrombosis of the visualized lower extremities. Reviewed by: Joseph Cummins MD on 03/21/2023 8:48 AM PST Approved by: Joseph Cummins MD on 03/21/2023 8:48 AM PST Station ID: [id number]
== END 2023-03-20 16:07 | disposition home or self-care (01) ==
LOC: DI 16:06
PROVIDERS: ATTEND Registered Nurse
DX: R60.0 Localized edema (principal); R07.89 Other chest pain; R42 Dizziness and giddiness
CPT/HCPCS: 93970

== ENCOUNTER 2023-05-24 09:42 | Outpatient (CLI) | payer MEDICAID ==
[2023-05-24 09:53] LABS: BASOPHILS # (AUTO) 0.1 10^3/uL (0.0-0.1); BASOPHILS % (AUTO) 1.8 %; EOSINOPHILS # (AUTO) 0.1 10^3/uL (0.0-0.7); HCT - HEMATOCRIT 39.6 % (37.0-47.0); HGB - HEMOGLOBIN 13.3 g/dL (12.0-16.0); LYMPHOCYTES # (AUTO) 1.4 10^3/uL (1.5-3.5); LYMPHOCYTES % (AUTO) 31.7 %; MEAN CORPUSCULAR HEMOGLOBIN 33.2 pg (27.0-31.0); MEAN CORPUSCULAR HGB CONC 33.6 g/dL (32.0-36.0); MEAN CORPUSCULAR VOLUME 98.8 fL (81.0-99.0); MEAN PLATELET VOLUME 9.8 fL (7.9-10.8); MONOCYTES # (AUTO) 0.5 10^3/uL (0.0-1.0); MONOCYTES % (AUTO) 11.6 %; NEUTROPHILS # (AUTO) 2.3 10^3/uL (1.5-6.6); NEUTROPHILS % (AUTO) 52.7 %; PLT - PLATELET COUNT 188 10^3/uL (130-450); RED BLOOD COUNT 4.01 10^6/uL (4.20-5.40); RED CELL DISTRIBUTION WIDTH 11.8 % (12.0-15.0); WHITE BLOOD COUNT 4.4 x10^3/uL (4.8-10.8)
[2023-05-24 10:21] LABS: THYROID STIMULATING HORMONE 1.77 uIU/mL (0.34-5.60)
[2023-05-24 10:27] LABS: FERRITIN 8.7 ng/mL (11.0-306.8)
== END 2023-05-24 09:43 | disposition home or self-care (01) ==
LOC: LAB 09:42
PROVIDERS: ATTEND Nurse Practitioner
DX: R53.83 Other fatigue (principal)
CPT/HCPCS: 36415; 82728; 84443; 85025

== ENCOUNTER 2023-06-16 09:14 | Outpatient (CLI) | payer MEDICAID ==
[2023-06-16 15:31] LABS: BILIRUBIN,URINE NEGATIVE (NEGATIVE); GLUCOSE, URINE (UA) NEGATIVE (NEGATIVE); KETONES,URINE (UA) NEGATIVE (NEGATIVE); LEUKOCYTE ESTERASE, URINE NEGATIVE (NEGATIVE); NITRITE,URINE NEGATIVE (NEGATIVE); OCCULT BLOOD,URINE TRACE-INTA (NEGATIVE); PROTEIN,URINE NEGATIVE (NEGATIVE); UROBILINOGEN,URINE 0.2 (NORMAL) E.U./dL (NORMAL)
[2023-06-16 15:35] LABS: CLARITY,URINE CLEAR (CLEAR)
[2023-06-16 15:42] LABS: BACTERIA,URINE None Seen /HPF (None Seen); RBC,URINE 0-5 /HPF (0-5); SQUAMOUS EPITHELIAL CELL,UR RARE Squamous (<= Few); WBC,URINE 0-3 /HPF (0-5)
== END 2023-06-16 09:15 | disposition home or self-care (01) ==
LOC: LAB.S 09:14
PROVIDERS: ATTEND Urology
DX: R35.0 Frequency of micturition (principal)
CPT/HCPCS: 81001; 87086

== ENCOUNTER 2023-07-21 07:00 | Outpatient (CLI) | payer MEDICAID ==
--- NOTE | 2023-07-21 21:44 | XRAY Report ---
PROCEDURE: Toe(s) 2+V RT INDICATIONS: RIGHT BIG TOE PAIN TECHNIQUE: 3 views of the first toe(s) acquired. COMPARISON: None. FINDINGS: Bones: No fractures or dislocations. No suspicious bony lesions. Soft tissues: No suspicious soft tissue densities. No subcutaneous radiopaque foreign body. IMPRESSION: 1.No acute bony abnormality. If clinical symptoms persist, consider repeat radiograph in 10-14 days v ersus cross-sectional imaging. 2.No subcutaneous radiopaque foreign body. If there is clinical suspicion for a soft tissue mass, con reliner targeted ultrasound for further evaluation. Reviewed by: Katia Ingram MD on 07/21/2023 9:42 PM PDT Approved by: Katia Ingram MD on 07/21/2023 9:42 PM PDT Station ID: [id number]
== END 2023-07-21 23:59 | disposition home or self-care (01) ==
LOC: DI.S 07:00
PROVIDERS: ATTEND Emergency Medicine
DX: M79.674 Pain in right toe(s) (principal)

== ENCOUNTER 2023-08-23 10:53 | Outpatient (CLI) | payer MEDICAID ==
--- NOTE | 2023-08-24 10:40 | Mammography Report ---
BILATERAL DIGITAL SCREENING MAMMOGRAM 3D/2D WITH EXAGGERATED CC: 08/23/2023 CLINICAL: Routine screening. Family history of breast cancer. Comparison is made to exams dated: 03/02/2022 mammogram, 09/01/2016 mammogram, and 10/17/2019 mammogram - [facility]. Both breasts are extremely dense, which lowers the sensitivity of mammography (category d />75% gland ular tissue). There are new grouped calcifications in the right breast at 10 o'clock posterior depth. No other significant masses, calcifications, or other findings are seen in either breast. IMPRESSION: INCOMPLETE: NEEDS ADDITIONAL IMAGING EVALUATION The new grouped calcifications in the right breast are indeterminate. Additional views with possible ultrasound are recommended. Based on Tyrer-Cuzick model (a risk assessment model), the patient's lifetime risk is 33.3% and her 1 0 year risk is 8.1%. If a patient has an elevated risk, a more comprehensive evaluation should be con sidered and/or a referral to a genetic counselor. The [place] [employer], [employer] [employer], and NCCN Guidelines advise the consideration of Breast MRI as an adjunct to screening mammog raffi in patients whose "Lifetime risk to develop breast cancer" is 20% or higher. This exam was interpreted at Station ID: [id number]. NOTE: For mammograms, a report in lay terms will be sent to the patient. Approximately 15% of breast malignancies will not be visualized mammographically. In the management of a palpable breast mass, a negative mammogram must not discourage biopsy of a clinically suspicious lesion. Electronically Signed By: Jihan romero/kari:08/23/2023 15:23:41 ACR BI-RADS Category 0: Incomplete 3340F PARENCHYMAL PATTERN: (VD) - The breast(s) demonstrate(s) extremely dense parenchyma, limiting the sen sitivity of mammography. BI-RADS CATEGORY: (0) - 0 Mammo and [place] [id number] Immediate follow-up LATERALITY: (B)
== END 2023-08-23 10:54 | disposition home or self-care (01) ==
LOC: DI.S 10:53
PROVIDERS: ATTEND Nurse Practitioner
DX: Z12.31 Encounter for screening mammogram for malignant neoplasm of breast (principal); Z80.3 Family history of malignant neoplasm of breast; R92.343 Mammographic extreme density, bilateral breasts; R92.1 Mammographic calcification found on diagnostic imaging of breast

== ENCOUNTER 2023-09-04 13:39 | Outpatient (CLI) | payer MEDICAID ==
--- NOTE | 2023-09-05 12:25 | Mammography Report ---
UNILATERAL RIGHT DIGITAL DIAGNOSTIC MAMMOGRAM 3D/2D WITH MAGNIFICATION: 09/04/2023 CLINICAL: Patient returns for magnification views of microcalcifications in the right breast. Comparison is made to exams dated: 08/23/2023 mammogram, 03/02/2022 mammogram, 10/17/2019 mammogram, and 09/01/2016 mammogram - [facility]. The right breast is extremely dense, which lowers the sensitivity of mammography (category d />75% gl andular tissue). There are 0.7 cm grouped coarse heterogeneous calcifications in the right breast at 10 o'clock chocolate maker ior depth. This corresponds to finding seen on recent screening mammogram. No other significant masses or calcifications are seen in the breast. IMPRESSION: SUSPICIOUS OF MALIGNANCY Right breast 0.7 cm grouped coarse heterogeneous calcifications at 10 o'clock posterior depth. Findin g is suspicious. Recommend stereotactic core biopsy. Findings and recommendations were discussed with the patient during today's examination. Based on Tyrer-Cuzick model (a risk assessment model), the patient's lifetime risk is 33.3% and her 1 0 year risk is 8.1%. If a patient has an elevated risk, a more comprehensive evaluation should be con sidered and/or a referral to a genetic counselor. The [place] [employer], [employer], and NCCN Guidelines advise the consideration of Breast MRI as an adjunct to screening mammog raffi in patients whose "Lifetime risk to develop breast cancer" is 20% or higher. This exam was interpreted at Station ID: [id number]. NOTE: For mammograms, a report in lay terms will be sent to the patient. Approximately 15% of breast malignancies will not be visualized mammographically. In the management of a palpable breast mass, a negative mammogram must not discourage biopsy of a clinically suspicious lesion. Electronically Signed By: Meseret Rutherford M.D., Ph.D. eb/:09/04/2023 14:51:28 ACR BI-RADS Category 4: Suspicious abnormality 3344F PARENCHYMAL PATTERN: (VD) - The breast(s) demonstrate(s) extremely dense parenchyma, limiting the sen sitivity of mammography. BI-RADS CATEGORY: (4) - 4 Biopsy [id number] Immediate follow-up LATERALITY: (R)
== END 2023-09-04 13:40 | disposition home or self-care (01) ==
LOC: DI 13:39
PROVIDERS: ATTEND Nurse Practitioner
DX: R92.1 Mammographic calcification found on diagnostic imaging of breast (principal)

== ENCOUNTER 2023-09-11 08:42 | Outpatient (CLI) | payer MEDICAID ==
[2023-09-11] MEDS ORDERED: LIDOCAINE 1%-EPI 1:100000 20 ML MDV ONE (08:48)
[2023-09-11] MEDS ORDERED: LIDOCAINE-MPF 1% 5 ML VIAL ONE (08:48)
[2023-09-11] MEDS: LIDOCAINE 1%-EPI 1:100000 20 ML MDV SUBQ ONE (10:36)
[2023-09-11] MEDS: LIDOCAINE-MPF 1% 5 ML VIAL TD ONE (10:37)
--- NOTE | 2023-09-20 08:56 | Mammography Report ---
STEREOTACTIC GUIDED BIOPSY RIGHT BREAST WITH POST MAMMOGRAPHIC IMAGIN09/11/2023 CLINICAL: Right breast stereotactic biopsy of breast calcifications. Correlation is made to exams dated: 09/04/2023 mammogram, 08/23/2023 mammogram, 03/02/2022 mammogram, mammogram, and 09/01/2016 mammogram - [facility]. A stereotactic guided biopsy was performed for the concerning 0.7 cm area of grouped calcifications l ocated in the right breast at 10 o'clock posterior depth. This was described on the previous mammogr aphy report. The skin was prepped in the usual manner. Local anesthetic was administered to the acc ess site. A skin dimitirs was made in the breast. The abnormality was approached from the craniocaudal aspect. A 10 gauge biopsy needle was placed adjacent to the abnormality under computer guidance and confirmatory stereotactic mammography images were obtained to document needle placement. Once the ne edle was documented to be in the correct location, twelve specimens were obtained using an automated biopsy gun over two attempts. The specimens were sent to the laboratory for pathological analysis. IMPRESSION: STEREOTACTIC GUIDED BIOPSY MALIGNANT Stereotactic guided biopsy of the 0.7 cm area of grouped calcifications in the right breast posterior depth was successful. Two attempts were made. The second specimen radiograph confirms presence of calcifications. Due to eq uipment error, targeting was lost after sample acquisition was completed. A clip could not be placed . Pathology indicates malignant ductal carcinoma in situ (DCIS). Pathology results are concordant with imaging findings. A surgical/oncologic consultation is recommended. This exam was interpreted at Station ID: [id number]. Joseph Jimenez M.D. ,aty/:09/19/2023 21:35:21 BI-RADS CATEGORY: () - Unspecified - other recall n/a LATERALITY: (B)
== END 2023-09-11 08:43 | disposition home or self-care (01) ==
LOC: DI 08:42
PROVIDERS: ATTEND Nurse Practitioner
DX: D05.11 Intraductal carcinoma in situ of right breast (principal)
CPT/HCPCS: 19081